=== PATIENT | female | born 1955 | race African-American/Black ===

== ENCOUNTER 2020-12-11 14:22 | Inpatient (IN) | payer MEDICARE, OTHER ==
[~2020-12-11] VITALS: Ht 165.1 cm; Wt 78.0 kg
[2020-12-11] MEDS ORDERED: KETOROLAC 15MG/ML VIAL IV ONE (15:00)
[2020-12-11 15:20] LABS: BASOPHILS % 0.5 % (0.0-2.0); EOSINOPHILS % 0.4 % (0.0-5.0); HEMATOCRIT. 38.8 % (36.0-48.0); HEMOGLOBIN. 13.2 g/dL (12.0-16.0); LYMPHOCYTES % 28.7 % (20.0-50.0); MEAN CORPUSCULAR VOLUME 88.1 fL (81.0-99.0); MEAN PLATELET VOLUME 8.4 fl (7.4-10.4); MONOCYTES % 5.3 % (2.0-8.0); NEUTROPHILS % 65.1 % (40.0-76.0); PLATELET 300 x1000/uL (130-400); RED CELL DISTRIBUTION WIDTH 13.3 % (11.6-14.6)
[2020-12-11 15:22] LABS: CHLORIDE 108 mEq/L (98-107)
[2020-12-11] MEDS ORDERED: IBUP-2029 MT (19:25)
[2020-12-11] MEDS ORDERED: LIDOCAINE HCL 1% 20ML VIAL (Pyxis) INJ INFIL ONE (20:15)
[2020-12-11] MEDS ORDERED: MORPHINE SULFATE 4 MG/ML CPJ (NOT FOR IM USE) IV ONE (21:00)
[2020-12-11] MEDS ORDERED: MORPHINE SULFATE 2 MG/ML CPJ (NOT FOR IM USE) IV NR (21:15)
[2020-12-11 23:15] VITALS: BP 180/99
[2020-12-12 00:25] VITALS: BP 180/99
[2020-12-12] MEDS ORDERED: CLONIDINE 0.1MG TABLET PO PRN (01:00)
[2020-12-12] MEDS ORDERED: IPRATROPIUM/ALBUTEROL 0.5-3(2.5)MG/3ML NEB HHN PRN (01:00)
[2020-12-12] MEDS: AMLODIPINE 10MG TABLET PO SCH ×2 (01:11→08:35)
[2020-12-12] MEDS: MORPHINE SULFATE 2 MG/ML CPJ (NOT FOR IM USE) IV PRN ×2 (01:11→08:36)
[2020-12-12 04:37] VITALS: BP 116/76
[2020-12-12] MEDS ORDERED: IOHEXOL-350 100 ML BOTTLE ONE (07:09)
[2020-12-12 08:00] VITALS: BP 145/87
[2020-12-12] MEDS ORDERED: ATOR40TA70 PO (10:11)
[2020-12-12] MEDS ORDERED: LORA10TA7 PO (10:11)
[2020-12-12] MEDS ORDERED: FLUT9.9S BOTHNSTRLS (10:11)
[2020-12-12 12:00] VITALS: BP 104/71
[2020-12-12] MEDS ORDERED: HYDROCODONE/ACETAMINOPHEN 5/325MG TABLET PO PRN (12:30)
[2020-12-12 16:00] VITALS: BP 115/80
[2020-12-12] MEDS: IPRATROPIUM/ALBUTEROL 0.5-3(2.5)MG/3ML NEB HHN SCH (17:00)
[2020-12-12 20:00] VITALS: BP 127/83
[2020-12-12] MEDS: KETOROLAC 15MG/ML VIAL IV PRN (21:15)
[2020-12-13] VITALS: BP 110/75
[2020-12-13 04:00] VITALS: BP 115/82
[2020-12-13 08:36] VITALS: BP 123/82
[2020-12-13] MEDS: AMLODIPINE 10MG TABLET PO SCH (08:45)
[2020-12-13] MEDS: IPRATROPIUM/ALBUTEROL 0.5-3(2.5)MG/3ML NEB HHN SCH ×3 (09:15→20:54)
[2020-12-13 11:44] VITALS: BP 101/66
[2020-12-13 16:21] VITALS: BP 120/77
[2020-12-13] MEDS: KETOROLAC 15MG/ML VIAL IV PRN (17:36)
[2020-12-13 20:00] VITALS: BP 118/76
[2020-12-14 00:06] VITALS: BP 120/74
[2020-12-14 04:00] VITALS: BP 127/79
[2020-12-14 07:55] VITALS: BP 120/81
[2020-12-14] MEDS: IPRATROPIUM/ALBUTEROL 0.5-3(2.5)MG/3ML NEB HHN SCH (08:23)
[2020-12-14] MEDS: AMLODIPINE 10MG TABLET PO SCH (08:30)
[2020-12-14] MEDS ORDERED: DOCUSATE SODIUM 250MG CAPSULE PO SCH (09:45)
[2020-12-14 11:40] VITALS: BP 107/80
[2020-12-14 14:32] VITALS: BP 107/80
== END 2020-12-14 15:36 | disposition home or self-care (01) | DRG 143 ==
LOC: ER 14:22 → 6WST 20:11 → ENRESERV 22:20
PROVIDERS: ADMIT Internal Medicine; ATTEND Internal Medicine
PROC: 0W9B30Z Drainage of Left Pleural Cavity with Drainage Device, Percutaneous Approach (ICD-10-PCS; principal; 2020-12-11)
DX: J93.83 Other pneumothorax (principal); E87.8 Other disorders of electrolyte and fluid balance, not elsewhere classified; E78.5 Hyperlipidemia, unspecified; I10 Essential (primary) hypertension; J43.9 Emphysema, unspecified; I16.0 Hypertensive urgency; J30.9 Allergic rhinitis, unspecified; F32.9 Major depressive disorder, single episode, unspecified; Z87.891 Personal history of nicotine dependence
CPT/HCPCS: 36415; 71045; 71250; 71275; 80053; 83880; 84484; 85025; 85379; 93005; 93970; 94640; 99285; J1885; J2270; J3490; Q9967

== ENCOUNTER → 2022-10-28 | Outpatient (CLI) | payer MEDICARE, OTHER ==
[~2022-10-28] MED LIST: ATOR40TA70 PO; FLUT9.9S BOTHNSTRLS; LORA10TA7 PO
== END | disposition home or self-care (01) ==
LOC: CT 09:16
PROVIDERS: ATTEND Internal Medicine Critical Care Medicine
DX: J44.9 Chronic obstructive pulmonary disease, unspecified (principal); R91.1 Solitary pulmonary nodule
CPT/HCPCS: 71250

== ENCOUNTER 2023-02-03 20:35 | Emergency (ER) | payer MEDICARE, OTHER ==
[~2023-02-03] VITALS: Ht 165.1 cm; Wt 90.0 kg
[2023-02-03 20:45] VITALS: O2SAT 100
[2023-02-03 22:14] LABS: BASOPHILS % 0.6 % (0.0-2.0); EOSINOPHILS % 1.6 % (0.0-5.0); HEMATOCRIT. 38.3 % (36.0-48.0); HEMOGLOBIN. 12.7 g/dL (12.0-16.0); LYMPHOCYTES % 43.9 % (20.0-50.0); MEAN CORPUSCULAR VOLUME 87.8 fL (81.0-99.0); MEAN PLATELET VOLUME 8.5 fl (7.4-10.4); MONOCYTES % 5.9 % (2.0-8.0); PLATELET 312 x1000/uL (130-400); RED BLOOD CELL COUNT 4.37 mill/uL (4.2-5.4); WHITE BLOOD COUNT 7.2 x1000/uL (4.5-11.0)
[2023-02-03 22:51] LABS: ALANINE AMINOTRANSFERASE 9 IU/L (10-49); ALBUMIN 4.5 g/dL (3.2-4.8); ASPARTATE AMINOTRANSFERASE 16 IU/L (<34); BILIRUBIN TOTAL 0.4 mg/dL (0.1-1.0); CALCIUM 10.3 mg/dL (8.7-10.4); CARBON DIOXIDE 27 mEq/L (21-32); CHLORIDE 108 mEq/L (98-107); CREATININE 0.9 mg/dL (0.6-1.0); GLUCOSE 119 mg/dL (70-105); POTASSIUM 3.5 mEq/L (3.5-5.1); PROTEIN TOTAL 7.2 g/dL (6.0-8.3); SODIUM 142 mEq/L (136-145); UREA NITROGEN BLOOD 13 mg/dL (9-23)
[2023-02-03 23:37] VITALS: BP 138/77; PULSE 85; RESP 20; TEMP 98.4
== END 2023-02-03 23:40 | disposition home or self-care (01) ==
LOC: ER 20:35
DX: R04.0 Epistaxis (principal); I10 Essential (primary) hypertension
CPT/HCPCS: 36415; 80053; 85025; 99283

== ENCOUNTER 2024-08-08 04:05 | Emergency (ER) | payer OTHER, MEDICAID ==
[~2024-08-08] VITALS: Ht 167.6 cm; Wt 77.0 kg
[2024-08-08 04:12] VITALS: O2SAT 99
[2024-08-08] MEDS ORDERED: OXYM30SP26 BOTHNSTRLS (05:11)
[2024-08-08] MEDS ORDERED: PETR85OI TP (05:11)
[2024-08-08 05:54] VITALS: BP 140/82; PULSE 96; RESP 18; TEMP 36.5; O2SAT 96
== END 2024-08-08 05:56 | disposition home or self-care (01) ==
LOC: ER 04:05
DX: R04.0 Epistaxis (principal); I10 Essential (primary) hypertension
CPT/HCPCS: 99283